=== PATIENT | male | born 1965 | race Caucasian/White ===

== ENCOUNTER 2019-11-06 22:57 | Emergency (ER) | payer BC, SELFPAY ==
[2019-11-06 22:58] VITALS: BP 170/107; PULSE 62; RESP 17; TEMP 36.5; O2SAT 98; BMI 32.4
--- NOTE | 2019-11-06 23:11 | ED.VISSUMM ---
- ER Visit Summary Date of Service: 11/06/19 Chief Complaint: Left arm pain History of Present Illness: The patient is a 54 M who presents with left arm pain that began last night. Patient states the pain is intermittent. Patient states the pain lasts 1 to 2 seconds. Patient states he was moving wood and lifting it into his wood-burning stove when he felt a pain in his arm. Patient denies any paresthesias or weakness. Patient describes the pain is sharp. Patient is concerned that this could be cardiac related. Patient denies any chest pain. Patient denies any shortness of breath or cough. Patient denies any nausea or vomiting. Patient denies any diaphoresis. Patient denies any heartburn or reflux. Physical Examination: Vital signs are stable. Patient is afebrile. Patient is in no acute distress. Oral mucosa is pink and moist. Neck is supple. Trachea is midline. There is no JVD noted. Heart was regular rate and rhythm. Lungs are clear and equal bilaterally. Abdomen is soft. Bowel sounds are normal. There is no tenderness. There is no rebound or guarding noted. Skin is warm dry. Cranial nerves II through XII are intact. There are no focal motor or sensory deficits noted. Extremities are intact. There is no calf tenderness or edema. Test Results: EKG showed normal sinus rhythm with a rate of 58. There are nonspecific ST-T wave changes. There are no prior EKGs available for comparison. CBC, comprehensive metabolic profile, troponin were obtained and were all within normal limits. PA and lateral chest x-ray was obtained. There is no acute cardiopulmonary process. This was interpreted by the radiologist and myself. Emergency Department Course and Treatment: Patient was advised of his findings. Patient was advised that this is most likely muscular strain of his left arm. Patient was instructed to use ice to the area. Patient was instructed to take Tylenol or ibuprofen as needed for pain. Patient was instructed to follow-up with his primary care physician in 5 to 7 days. Patient understood and was agreeable with the plan. All questions were answered. Disposition: Discharge home Impression: Left arm muscle strain This note was generated with [employer] dictation software. It may contain incorrect words, spelling, and punctuation that were not noted in review of the chart prior to signing ED Disposition - Plan for ED Patient: Disposition: Home or Assisted Living Diagnosis: Muscle strain of left upper arm Instructions: MUSCLE STRAIN, Extremity Referrals: Haydee Knight MD [Primary Care Provider] - 5-7 Days
--- NOTE | 2019-11-06 23:44 | EKG12_ITS ---
Test Reason : CP Blood Pressure : / mmHG Vent. Rate : 058 BPM Atrial Rate : 058 BPM P-R Int : 168 ms QRS Dur : 098 ms QT Int : 424 ms P-R-T Axes : 035 070 -03 degrees QTc Int : 416 ms Sinus bradycardia with sinus arrhythmia Nonspecific ST abnormality Abnormal QRS-T angle, consider primary T wave abnormality Abnormal ECG Confirmed by RAFA KYLE, CHRISSY ([id number]), editor trade journal ALDAIR UMANA ([id number]) on 11/11/2019 2:57:35 PM Referred By: ELAYNE Confirmed By:SAL CRAIG MD
[2019-11-06 23:55] LABS: Absolute Lymphocyte Count 3.76 X10^3/uL (0.83-4.51); Absolute Neutrophil Count 3.2 X10^3/uL (2.0-7.7); Basophil# 0.08 X10^3/uL; Eosinophil# 0.48 X10^3/uL; Eosinophils% 5.8 % (0-5); Hematocrit 47.2 % (40-54); Hemoglobin 16.3 g/dL (13.0-16.5); Lymphocyte # 3.76 X10^3/ul (4.0); Lymphocyte % 45.4 % (19-41); Mean Corp Hgb Conc 34.5 g/dL (32-36); Mean Corpuscular Hgb 32.3 pg (27.0-32.0); Mean Corpuscular Volume 93.5 fL (80-94); Mean Platelet Vol. 9.9 fl (6.2-12.0); Monocyte# 0.74 X10^3/uL; Monocyte% 8.9 % (0-10); NRBC Flagged by Analyzer 0 % (0-5); Neutrophil # 3.21 X10^3/uL (2.7-7.7); Neutrophil % 38.7 % (47-70); Platelet Count 240 K/mm3 (150-450); RBC Distribution Width CV 12.6 % (11.6-14.6); RBC Distribution Width SD 42.8 fl (35.1-43.9); Red Blood Count 5.05 M/mm3 (4.6-6.2); White Blood Count 8.3 K/mm3 (4.4-11.0)
--- NOTE | 2019-11-06 23:59 | RAD_ITS ---
HISTORY: PAIN IN LEFT ARM EXAMINATION/TECHNIQUE: XR Chest 2 Views: COMPARISON: None FINDINGS: Cardiac telemetry leads in place. Normal heart size and normal lung volumes. No vascular congestion, pleural effusion, or pulmonary infiltration. No pneumothorax. Atherosclerotic thoracic aorta. The bony thorax appears intact. RAD/Chest PA and Lateral IMPRESSION: No acute cardiopulmonary disease. at 0052 Reported and signed by: Rafael Gautam MD Electronically Signed: Rafael Gautam, at 0:51 EST Tel , Service support ,
[2019-11-07 00:10] LABS: ALB/GLOB Ratio 1.2 RATIO (0.9-2.4); AST(SGOT) 26 U/L (15-37); Alanine Aminotransfer ALT/SGPT 42 U/L (16-61); Alkaline Phosphatase 46 U/L (45-117); Anion Gap 4 (5-15); BUN 10 mg/dL (7-18); BUN/Creat Ratio 7.7 RATIO (10-20); Calcium,Total 9.1 mg/dL (8.5-10.1); Chloride 106 mmol/L (98-107); EST Glomerular Filtration Rate 61 mL/min (>60); Est Glom Filt Rate - Afr Amer 74 mL/min (>60); Estimated Creatinine Clearance 66.29 ml/min; Globulin 3.4 g/dL (2.2-4.2); Glucose 100 mg/dL (74-106); Potassium 3.5 mmol/L (3.5-5.1); Protein, Total 7.4 g/dL (6.4-8.2); Sodium Level 140 mmol/L (136-145)
[2019-11-07 01:03] VITALS: BP 129/92; PULSE 66; RESP 16; RESP 19; O2SAT 93
== END 2019-11-07 01:13 | disposition home or self-care (01) ==
PROVIDERS: Emergency Provider Emergency Medicine; PCP Internal Medicine
DX: S46.912A Strain of unspecified muscle, fascia and tendon at shoulder and upper arm level, left arm, initial encounter (principal); X50.3XXA Overexertion from repetitive movements, initial encounter; Y93.89 Activity, other specified
CPT/HCPCS: 71046; 80053; 84484; 85025; 93005; 99284; A4216